=== PATIENT | female | born 1980 | race American Indian/Alaskan Native ===

== ENCOUNTER 2017-10-17 10:07 | Emergency (ER) | payer SELFPAY ==
[2017-10-17 11:22] LABS: Hematocrit 30.4 % (30.3-42.9); Hemoglobin 9.6 gm/dl (10.1-14.3); Mean Corpuscular HGB Conc 32 % (30-34); Mean Corpuscular Volume 75 fl (79-97); Platelet Count 200 K/mm3 (140-440); Red Blood Count 4.03 M/mm3 (3.65-5.03); Red Cell Distribution Width 17.5 % (13.2-15.2)
[2017-10-17 11:25] LABS: BUN/Creatinine Ratio 18; Blood Urea Nitrogen 11 mg/dL (7-17); Calcium 8.7 mg/dL (8.4-10.2); Hemolysis Index 19
[2017-10-17 11:27] LABS: Mean Corpuscular Hemoglobin 24 pg (28-32)
[2017-10-17 11:43] VITALS: BP 140/84
[2017-10-17] MEDS ORDERED: TYLENOL PO ONE (11:51)
--- NOTE | 2017-10-17 11:51 | Emergency Department Report ---
ED General Adult HPI - General Chief complaint: Syncope Stated complaint: PSEUDO SYNCOPY Time Seen by Provider: 10/17/17 11:38 Source: patient, EMS (ems notes not available at time of chart dictation), RN notes reviewed Mode of arrival: Stretcher Limitations: No Limitations - History of Present Illness Initial comments: This is a 36-year-old female who was not known to this provider previously who reports that she is not . Her primary care doctor is with the [facility]. Patient was at work today, and got hit in the head with a cart at work. After this impact, she thinks that she passed out. She is not certain. She complains of throbbing global headache. Prior to the accident at work, she was not having any symptoms. The headache is not sudden or thunderclap in nature and it did not reach maximal intensity within an hour. She denies midline neck pain, chest pain, abdominal pain, shortness of breath. -: Sudden Location: head Radiation: non-radiation Quality: aching Consistency: other (episode of syncope is now resolved) Improves with: none Worsens with: none Associated Symptoms: confusion, headaches, loss of appetite, malaise, syncope. denies: chest pain, cough, diaphoresis, fever/chills, nausea/vomiting, rash, seizure, shortness of breath, weakness - Related Data Allergies Allergy/AdvReac Type Severity Reaction Status Date / Time No Known Allergies Allergy Unverified 10/17/17 10:32 ED Review of Systems ROS: Stated complaint: PSEUDO SYNCOPY Other details as noted in HPI Constitutional: denies: fever Eyes: denies: eye discharge ENT: denies: epistaxis Respiratory: denies: cough Cardiovascular: syncope Gastrointestinal: denies: abdominal pain Genitourinary: denies: dysuria Musculoskeletal: denies: back pain Skin: denies: rash Neurological: headache. denies: weakness Psychiatric: anxiety ED Past Medical Hx - Past Medical History Previous Medical History?: No - Surgical History Past Surgical History?: No - Social History Smoking Status: Never Smoker Substance Use Type: None ED Physical Exam - General Limitations: No Limitations General appearance: alert, in no apparent distress - Head Head exam: Present: atraumatic, normocephalic - Eye Eye exam: Present: normal appearance, PERRL, EOMI. Absent: nystagmus - ENT ENT exam: Present: normal exam, normal orophraynx, mucous membranes moist, normal external ear exam - Neck Neck exam: Present: normal inspection, full ROM. Absent: tenderness, meningismus - Respiratory Respiratory exam: Present: normal lung sounds bilaterally. Absent: respiratory distress - Cardiovascular Cardiovascular Exam: Present: regular rate, normal rhythm, normal heart sounds. Absent: bradycardia, tachycardia, irregular rhythm, systolic murmur, diastolic murmur, rubs, gallop - GI/Abdominal GI/Abdominal exam: Present: soft, normal bowel sounds. Absent: distended, tenderness, guarding, rebound, rigid, pulsatile mass - Extremities Exam Extremities exam: Present: normal inspection, full ROM, normal capillary refill , other (2+ pulses noted in the bilateral upper, lower extremities. Compartments soft. No long bony tenderness. The pelvis is stable.). Absent: tenderness, pedal edema, joint swelling, calf tenderness - Back Exam Back exam: Present: normal inspection, full ROM. Absent: tenderness, CVA tenderness (R), paraspinal tenderness, vertebral tenderness - Neurological Exam Neurological exam: Present: alert (able to recall 3 out of 3 words at time 0. Able to recall 2 out of 3 words at 5 minutes.), oriented X3, CN II-XII intact, normal gait (there is no past-pointing. There is normal [id number]. There is negative pronator drift.), other (Extraocular movements intact. Tongue midline. No facial droop. Facial sensation intact to light touch in the V1, V2 , V3 distribution bilaterally. 5 and 5 strength in 4 extremities.. Sensation is intact to light touch in 4 extremities.). Absent: motor sensory deficit - Psychiatric Psychiatric exam: Present: normal affect, normal mood - Skin Skin exam: Present: warm, dry, intact, normal color. Absent: rash ED Course Vital Signs 10/17/17 10/17/17 10:28 11:42 Temperature 98.1 F Pulse Rate 81 72 Respiratory 16 16 Rate Blood Pressure 143/89 Blood Pressure 140/84 [Left] O2 Sat by Pulse 100 96 Oximetry - Reevaluation(s) Reevaluation #1: 10/17/17 13:03 Differential diagnosis, including but not limited to: Intracranial injury, arrhythmia, concussion Assessment and plan: 36-year-old female status post episode of loss of consciousness after mild blunt head trauma. Clinically sober at this time, has a GCS of 15, with an NIH score of 0. Most likely has a concussion. EKG unremarkable. Denies DVT, pulmonary embolus risk factors, and is low risk by well's criteria. Has been observed in the ER for hours thus far without clinical decompensation or recurrent episode of syncope. Call the [place] physician, Dr. Simpson; [place] will contact the patient with follow-up within the week. Currently awaiting CT scan of the brain results. Reevaluation #2: 10/17/17 13:45 CT scan of the brain is negative. Patient observed in the ER for hours without clinical decompensation. Noted to be looking at a phone without difficulty. No recurrent events. [place] is going to contact the patient to arrange outpatient follow-up. Patient will be discharged at this time. ED Medical Decision Making - Lab Data Result diagrams: 10/17/17 10:49 10/17/17 10:49 Vital Signs 10/17/17 10/17/17 10:28 11:42 Temperature 98.1 F Pulse Rate 81 72 Respiratory 16 16 Rate Blood Pressure 143/89 Blood Pressure 140/84 [Left] O2 Sat by Pulse 100 96 Oximetry Lab Results 10/17/17 10/17/17 Range/Units 10:49 10:49 WBC 6.2 (4.5-11.0) K/mm3 RBC 4.03 (3.65-5.03) M/mm3 Hgb 9.6 L (10.1-14.3) gm/dl Hct 30.4 (30.3-42.9) % MCV 75 L (79-97) fl MCH 24 L (28-32) pg MCHC 32 (30-34) % RDW 17.5 H (13.2-15.2) % Plt Count 200 (140-440) K/mm3 Sodium 136 L (137-145) mmol/L Potassium 3.5 L (3.6-5.0) mmol/L Chloride 103.3 (98-107) mmol/L Carbon Dioxide 19 L (22-30) mmol/L Anion Gap 17 mmol/L BUN 11 (7-17) mg/dL Creatinine 0.6 L (0.7-1.2) mg/dL Estimated GFR > 60 ml/min BUN/Creatinine Ratio 18 % Glucose 91 (65-100) mg/dL Calcium 8.7 (8.4-10.2) mg/dL - EKG Data -: EKG Interpreted by Me EKG shows normal: sinus rhythm, axis, intervals, QRS complexes, ST-T waves - EKG Data When compared to previous EKG there are: previous EKG unavailable - Radiology Data Radiology results: pending Critical care attestation.: If time is entered above; I have spent that time in minutes in the direct care of this critically ill patient, excluding procedure time. ED Disposition Clinical Impression: Concussion Qualifiers: Encounter type: initial encounter Loss of consciousness presence/duration: with LOC of unspecified duration Qualified Code(s): S06.0X9A - Concussion with loss of consciousness of unspecified duration, initial encounter Disposition: TO HOME OR SELFCARE Is pt being admited?: No Does the pt Need Aspirin: No Condition: Good Instructions: Minor Head Injury (ED), Concussion (ED) Additional Instructions: Take acetaminophen, [id number], 650 mg, every 4 hours, alternating with ibuprofen, 600 mg with food, every [address] or operate motor vehicles until cleared by her primary care doctor or neurology specialist. Patient most likely has a concussion. Patient can return to work, but patient should not participate in strenuous physical activities or contact sports or contact activities such as football or heavy weight lifting until cleared by a physician. Follow-up with the primary care doctor or neurology specialist for presumed concussion within the next 7 days. Return to the ER right away with new pain, worsening pain, migration of pain, projectile vomiting, change in mental status, confusion, inability to tolerate liquid feeds. Referrals: SHAILESH REECE MD [Referring] - 3-5 Days KARIN HERNANDEZ MD [Staff Physician] - 3-5 Days KEVIN SCHAFER MD [Staff Physician] - 3-5 Days
--- NOTE | 2017-10-17 13:29 | Cat Scan Report ---
FINAL REPORT EXAM: CT HEAD/BRAIN WO CON HISTORY: headache concussion COMPARISON: None. TECHNIQUE: Multiple contiguous axial images were obtained from the skullbase to the vertex without administration of IV contrast. FINDINGS: Brain volume is normal for age. No hemorrhage, mass, mass effect, or midline shift. Ventricles are not enlarged. Normal basal cisterns. No pathologic extra-axial fluid collection. No evidence of acute infarct. No skull fracture. Paranasal sinuses and mastoid air cells are clear. Bilateral orbits are grossly intact. IMPRESSION: No acute intracranial abnormality.
== END 2017-10-17 13:57 | disposition home or self-care (01) ==
LOC: ED 10:07
DX: S06.0X9A Concussion with loss of consciousness of unspecified duration, initial encounter (principal); X58.XXXA Exposure to other specified factors, initial encounter; Y93.89 Activity, other specified; Y92.89 Other specified places as the place of occurrence of the external cause; Y99.8 Other external cause status
CPT/HCPCS: 36415; 70450; 80048; 85027; 93005; 93010; 99284

== ENCOUNTER 2018-08-26 18:46 | Outpatient (CLI) | payer OTHER ==
[2018-08-26] MEDS ORDERED: LACTATED RINGERS 500 ML IV ONE (20:00)
[2018-08-26 20:54] LABS: Bacteria,Urine 2+ /HPF (Negative); Bilirubin,Urine NEG (Negative); Blood,Urine NEG (Negative); Color,Urine Straw (Yellow); Mucus,Urine FEW /HPF; Protein,Urine <15 mg/dL mg/dL (Negative); Urobilinogen,Urine < 2.0 mg/dL (<2.0)
[2018-08-26 21:52] VITALS: BP 117/63
== END 2018-08-26 22:24 | disposition home or self-care (01) ==
LOC: TRG 18:46
PROVIDERS: ATTEND Obstetrics & Gynecology
DX: O47.02 False labor before 37 completed weeks of gestation, second trimester (principal); Z3A.27 27 weeks gestation of pregnancy
CPT/HCPCS: 59025; 81001; 87086

== ENCOUNTER 2018-10-11 17:50 | Outpatient (CLI) | payer OTHER ==
[2018-10-11 19:16] LABS: Bilirubin,Urine NEG (Negative); Blood,Urine SM (Negative); Color,Urine Yellow (Yellow); Mucus,Urine FEW /HPF; Protein,Urine <15 mg/dL mg/dL (Negative); Urobilinogen,Urine < 2.0 mg/dL (<2.0)
[2018-10-11 19:27] LABS: Hematocrit 32.9 % (30.3-42.9); Hemoglobin 10.8 gm/dl (10.1-14.3); Mean Corpuscular HGB Conc 33 % (30-34); Mean Corpuscular Volume 85 fl (79-97); Platelet Count 184 K/mm3 (140-440); Red Blood Count 3.88 M/mm3 (3.65-5.03); Red Cell Distribution Width 15.5 % (13.2-15.2)
[2018-10-11] MEDS: LACTATED RINGERS 1,000 ML IV SCH ×2 (19:31→20:45)
[2018-10-11 19:45] LABS: Uric Acid 4.7 mg/dL (3.5-7.6)
[2018-10-11 19:46] LABS: Alanine Aminotransferase < 5 units/L (7-56)
[2018-10-11] MEDS ORDERED: ceFAZolin 2 GM in NACL 0.9% 100 ML IV ONE (20:40)
[2018-10-11 21:58] VITALS: BP 144/74
== END 2018-10-11 22:05 | disposition home or self-care (01) ==
LOC: TRG 17:50
PROVIDERS: ATTEND Obstetrics & Gynecology
DX: O26.893 Other specified pregnancy related conditions, third trimester (principal); O21.2 Late vomiting of pregnancy; R51 Headache; R25.2 Cramp and spasm; O13.3 Gestational [pregnancy-induced] hypertension without significant proteinuria, third trimester; O24.419 Gestational diabetes mellitus in pregnancy, unspecified control; O09.523 Supervision of elderly multigravida, third trimester; Z3A.34 34 weeks gestation of pregnancy
CPT/HCPCS: 36415; 59025; 81001; 82565; 83615; 84450; 84460; 84550; 85027; 87086; 96361; 96365; J0690; J7120; 96360

== ENCOUNTER 2018-10-12 17:16 | Outpatient (CLI) | payer OTHER ==
[2018-10-12] MEDS ORDERED: LACTATED RINGERS 1,000 ML ONE (18:25)
[2018-10-12] MEDS ORDERED: ZOFRAN IV ONE (18:36)
[2018-10-12 19:57] LABS: Bacteria,Urine 4+ /HPF (Negative); Bilirubin,Urine NEG (Negative); Blood,Urine SM (Negative); Color,Urine Amber (Yellow); Mucus,Urine 1+ /HPF; Urobilinogen,Urine < 2.0 mg/dL (<2.0)
[2018-10-12 19:59] LABS: RBC,Urine > 182.0 /HPF (0.0-6.0)
[2018-10-12] MEDS ORDERED: LACTATED RINGERS 1,000 ML IV ONE (20:11)
[2018-10-12] MEDS ORDERED: REGLAN IV ONE (20:35)
[2018-10-12 21:05] VITALS: BP 134/83
[2018-10-12] MEDS ORDERED: ANCEF/NS 1 GM/50 ML 1 GM/50 ML BAG IV ONE (21:25)
== END 2018-10-12 22:03 | disposition home or self-care (01) ==
LOC: TRG 17:16
PROVIDERS: ATTEND Obstetrics & Gynecology
DX: O26.893 Other specified pregnancy related conditions, third trimester (principal); R10.9 Unspecified abdominal pain; O21.2 Late vomiting of pregnancy; O13.3 Gestational [pregnancy-induced] hypertension without significant proteinuria, third trimester; O24.419 Gestational diabetes mellitus in pregnancy, unspecified control; O09.523 Supervision of elderly multigravida, third trimester; Z3A.34 34 weeks gestation of pregnancy
CPT/HCPCS: 59025; 81001; 87086; 96365; 96366; 96368; 96375; J0690; J2405; J2765; J7120; 96360; 96361

== ENCOUNTER 2018-10-30 11:36 | Observation (INO) | payer OTHER ==
[2018-10-30] MEDS ORDERED: COLACE PO PRN (12:37)
[2018-10-30] MEDS ORDERED: TYLENOL PO PRN (12:37)
[2018-10-30] MEDS ORDERED: ZOFRAN IV PRN (12:37)
[2018-10-30] MEDS ORDERED: MILK OF MAGNESIA PO PRN (12:37)
[2018-10-30] MEDS ORDERED: LACTATED RINGERS 500 ML IV ONE (12:38)
--- NOTE | 2018-10-30 12:44 | History and Physical Report ---
History of Present Illness Date of examination: 10/30/18 Chief complaint: Suspected PIH History of present illness: Pt is a 37yo BF EDC 11/22/18; EGA 36 5/7 weeks presents from [facility] for ashby spected PIH. She was seen at [facility] today with BP142/86 and complaints of leg swelling, and denies headaches or blurred vision. BPP 10/10 with PATRICA 11.1 She is being admitted for 23 hour Observation per [facility]. Past History Past Medical History: no pertinent history Social history: no significant social history, single - Obstetrical History Expected Date of Delivery: 11/22/18 Actual Gestation: 36 Week(s) 5 Day(s) : 3 Medications and Allergies Allergies Allergy/AdvReac Type Severity Reaction Status Date / Time No Known Allergies Allergy Verified 10/11/18 18:16 Home Medications Medication Instructions Recorded Confirmed Last Taken Type Ampicillin 500 mg PO Q6H #20 capsule 08/26/18 Unknown Rx cephALEXin [Keflex] 500 mg PO Q12HR #14 cap 10/11/18 Unknown Rx Active Meds: Active Medications Acetaminophen (Tylenol) 650 mg PO Q4H PRN PRN Reason: Pain MILD(1-3)/Fever >100.5/GONZALEZ Docusate Sodium (Colace) 100 mg PO Q12H PRN PRN Reason: Constipation Lactated Ringer's (Lactated Ringers) 500 mls @ 999 mls/hr IV BOLUS ONE Stop: 10/30/18 13:08 Lactated Ringer's (Lactated Ringers) 1,000 mls @ 125 mls/hr IV DIRECT VALERIE Labetalol HCl (Normodyne) 200 mg PO BID VALERIE Labetalol HCl (Normodyne) 200 mg PO BID VALERIE Magnesium Hydroxide (Milk Of Magnesia) 30 ml PO QHS PRN PRN Reason: Laxative Effect Multivitamins/Iron/Calcium ( Vitamin) 1 each PO QDAY VALERIE Ondansetron HCl (Zofran) 4 mg IV Q6H PRN PRN Reason: Nausea And Vomiting Review of Systems All systems: negative - Vital Signs Vital signs: Vital Signs Temp Resp 97.8 F 10/30/18 12:01 10/30/18 12:01 Temp Pulse Resp BP Pulse Ox 97.8 F 10/30/18 12:01 10/30/18 12:01 - Physical Exam Breasts: Positive: deferred Cardiovascular: Regular rate Lungs: Positive: Clear to auscultation Abdomen: Positive: normal appearance Genitourinary (Female): Positive: normal external genitalia Uterus: Positive: enlarged Extremities: Positive: normal - Obstetrical FHR: category 1 Uterine Contraction Monitor Mode: External Results Result Diagrams: 10/30/18 Unknown 10/30/18 Unknown All other labs normal. Ultrasound: report reviewed (BPP 10/; PATRICA 11.1) Assessment and Plan - Patient Problems (1) 36 weeks gestation of Onset Date: 10/30/18 Current Visit: Yes Status: Acute Plan to address problem: A: IUP @ 36 5/7 weeks PIH P: Admit for 23hr Observation Obtain PIH labs including 24hr urine for protein Begin Labetolol 200mg BID and IV hydralazine prn (2) PIH ( induced hypertension), antepartum Onset Date: 10/30/18 Current Visit: Yes Status: Acute
[2018-10-30] MEDS ORDERED: NORMODYNE PO SCH (13:00)
[2018-10-30 13:15] LABS: Hematocrit 36.1 % (30.3-42.9); Hemoglobin 11.2 gm/dl (10.1-14.3); Mean Corpuscular HGB Conc 31 % (30-34); Mean Corpuscular Volume 85 fl (79-97); Platelet Count 178 K/mm3 (140-440); Red Blood Count 4.26 M/mm3 (3.65-5.03); Red Cell Distribution Width 15.3 % (13.2-15.2)
[2018-10-30] MEDS: NORMODYNE PO SCH ×2 (13:20→23:11)
[2018-10-30 13:25] LABS: Alanine Aminotransferase 12 units/L (7-56); Alanine Aminotransferase 16 units/L (7-56); BUN/Creatinine Ratio 13; Blood Urea Nitrogen 8 mg/dL (7-17); Calcium 8.9 mg/dL (8.4-10.2); Hemolysis Index 9; Uric Acid 4.7 mg/dL (3.5-7.6)
[2018-10-30 14:27] LABS: Bilirubin,Urine NEG (Negative); Blood,Urine NEG (Negative); Color,Urine Yellow (Yellow); Mucus,Urine FEW /HPF; Protein,Urine <15 mg/dL mg/dL (Negative); Urobilinogen,Urine < 2.0 mg/dL (<2.0)
[2018-10-30 14:33] LABS: Albumin 3.5 g/dL (3.9-5)
[2018-10-30] MEDS ORDERED: LACTATED RINGERS 1,000 ML ONE (23:02)
[2018-10-30] MEDS: LACTATED RINGERS 1,000 ML IV SCH (23:11)
[2018-10-31] MEDS ORDERED: LACTATED RINGERS 1,000 ML ONE (03:20)
[2018-10-31] MEDS: LACTATED RINGERS 1,000 ML IV SCH ×2 (03:22→12:55)
[2018-10-31] MEDS ORDERED: PRENATAL VITAMIN PO SCH (10:00)
--- NOTE | 2018-10-31 10:29 | Progress Note ---
Assessment and Plan - Patient Problems (1) 36 weeks gestation of Onset Date: 10/30/18 Current Visit: Yes Status: Acute Plan to address problem: A: IUP @ 36 6/7 weeks PIH P: Admit for 23hr Observation Awaiting 24hr urine for protein Continue Labetolol 200mg BID and IV hydralazine prn (2) PIH ( induced hypertension), antepartum Onset Date: 10/30/18 Current Visit: Yes Status: Acute Subjective - Subjective Date of service: 10/31/18 Principal diagnosis: IUP @ 36 6/7 weeks; PIH Interval history: Pt is a 37yo BF EDC 11/22/18; EGA 36 6/7 weeks presented from [facility] for suspected PIH. She was seen at [facility] with BP142/86 and complained of leg swelling, but complained of headaches this morning but no blurred vision. BPP 10 with PATRICA 11.1 She was admitted for 23 hour Observation per [facility]. Patient reports: movement normal, no new complaints, no loss of fluid, no vaginal bleeding, no contractions Objective - Vital Signs Vital Signs: Vital Signs - 12hr 10/30/18 10/30/18 10/30/18 22:27 22:30 22:35 Temperature Pulse Rate 96 H 90 94 H Respiratory Rate Blood Pressure O2 Sat by Pulse 94 95 96 Oximetry 10/30/18 10/30/18 10/30/18 22:40 22:41 22:45 Temperature Pulse Rate 90 91 H 92 H Respiratory Rate Blood Pressure 132/75 O2 Sat by Pulse 95 94 95 Oximetry 10/30/18 10/30/18 10/30/18 22:46 23:04 23:09 Temperature Pulse Rate 82 109 H 102 H Respiratory Rate Blood Pressure O2 Sat by Pulse 94 98 97 Oximetry 10/30/18 10/30/18 10/30/18 23:11 23:14 23:19 Temperature Pulse Rate 101 H 90 92 H Respiratory Rate Blood Pressure 124/74 O2 Sat by Pulse 96 99 Oximetry 10/30/18 10/30/18 10/30/18 23:24 23:26 23:29 Temperature Pulse Rate 99 H 86 87 Respiratory Rate Blood Pressure 124/81 O2 Sat by Pulse 99 98 Oximetry 10/30/18 10/30/18 10/30/18 23:34 23:35 23:39 Temperature Pulse Rate 91 H 71 91 H Respiratory Rate Blood Pressure O2 Sat by Pulse 99 82 L 99 Oximetry 10/30/18 10/30/18 10/30/18 23:41 23:44 23:49 Temperature Pulse Rate 86 84 89 Respiratory Rate Blood Pressure 127/72 O2 Sat by Pulse 96 97 Oximetry 10/30/18 10/30/18 10/30/18 23:54 23:55 23:59 Temperature Pulse Rate 93 H 101 H 95 H Respiratory Rate Blood Pressure 133/75 O2 Sat by Pulse 96 96 Oximetry 10/31/18 10/31/18 10/31/18 00:01 00:04 00:08 Temperature Pulse Rate 93 H 103 H 90 Respiratory Rate Blood Pressure O2 Sat by Pulse 92 96 94 Oximetry 10/31/18 10/31/18 10/31/18 00:09 00:10 00:14 Temperature Pulse Rate 105 H 108 H 93 H Respiratory Rate Blood Pressure 144/84 O2 Sat by Pulse 96 96 Oximetry 10/31/18 10/31/18 10/31/18 00:19 00:24 00:26 Temperature Pulse Rate 99 H 89 101 H Respiratory Rate Blood Pressure 123/74 O2 Sat by Pulse 96 97 Oximetry 10/31/18 10/31/18 10/31/18 00:37 00:40 00:41 Temperature 97.1 F L Pulse Rate 91 H 85 Respiratory 18 Rate Blood Pressure 129/72 O2 Sat by Pulse 98 Oximetry 10/31/18 10/31/18 10/31/18 00:42 00:47 00:52 Temperature Pulse Rate 95 H 88 91 H Respiratory Rate Blood Pressure O2 Sat by Pulse 97 97 96 Oximetry 10/31/18 10/31/18 10/31/18 00:57 01:02 01:07 Temperature Pulse Rate 82 84 79 Respiratory Rate Blood Pressure 125/75 O2 Sat by Pulse 98 96 95 Oximetry 10/31/18 10/31/18 10/31/18 01:11 01:12 01:17 Temperature Pulse Rate 77 85 84 Respiratory Rate Blood Pressure 138/72 O2 Sat by Pulse 95 97 Oximetry 10/31/18 10/31/18 10/31/18 01:22 01:26 01:27 Temperature Pulse Rate 83 78 85 Respiratory Rate Blood Pressure 134/72 O2 Sat by Pulse 96 96 Oximetry 10/31/18 10/31/18 10/31/18 01:32 01:37 01:40 Temperature Pulse Rate 84 83 80 Respiratory Rate Blood Pressure 131/72 O2 Sat by Pulse 96 96 Oximetry 10/31/18 10/31/18 10/31/18 01:42 01:47 01:52 Temperature Pulse Rate 84 82 82 Respiratory Rate Blood Pressure O2 Sat by Pulse 96 96 96 Oximetry 10/31/18 10/31/18 10/31/18 01:56 01:57 01:59 Temperature Pulse Rate 92 H 81 94 H Respiratory Rate Blood Pressure 134/71 O2 Sat by Pulse 96 93 Oximetry 10/31/18 10/31/18 10/31/18 02:02 02:04 02:07 Temperature Pulse Rate 91 H 96 H 96 H Respiratory Rate Blood Pressure O2 Sat by Pulse 95 94 96 Oximetry 10/31/18 10/31/18 10/31/18 02:10 02:12 02:17 Temperature Pulse Rate 98 H 94 H 82 Respiratory Rate Blood Pressure 136/81 O2 Sat by Pulse 94 96 96 Oximetry 10/31/18 10/31/18 10/31/18 02:22 02:26 02:27 Temperature Pulse Rate 86 88 88 Respiratory Rate Blood Pressure 123/77 O2 Sat by Pulse 98 97 Oximetry 10/31/18 10/31/18 10/31/18 02:32 02:37 02:40 Temperature Pulse Rate 81 82 82 Respiratory Rate Blood Pressure 128/76 O2 Sat by Pulse 97 97 Oximetry 10/31/18 10/31/18 10/31/18 02:42 02:47 02:52 Temperature Pulse Rate 86 85 86 Respiratory Rate Blood Pressure O2 Sat by Pulse 96 96 96 Oximetry 10/31/18 10/31/18 10/31/18 03:14 03:19 03:24 Temperature Pulse Rate 97 H 92 H 85 Respiratory Rate Blood Pressure O2 Sat by Pulse 98 98 99 Oximetry 10/31/18 10/31/18 10/31/18 03:41 03:47 03:52 Temperature Pulse Rate 80 89 87 Respiratory Rate Blood Pressure 131/69 O2 Sat by Pulse 98 97 Oximetry 10/31/18 10/31/18 10/31/18 03:55 03:57 04:02 Temperature Pulse Rate 87 82 85 Respiratory Rate Blood Pressure 125/67 O2 Sat by Pulse 94 96 95 Oximetry 09/25/19 09/25/19 09/25/19 04:07 04:12 04:16 Temperature Pulse Rate 91 H 80 97 H Respiratory Rate Blood Pressure 164/91 O2 Sat by Pulse 97 98 92 Oximetry 10/31/18 10/31/18 10/31/18 04:18 04:23 04:26 Temperature Pulse Rate 95 H 85 86 Respiratory Rate Blood Pressure 130/68 O2 Sat by Pulse 100 97 Oximetry 10/31/18 10/31/18 10/31/18 04:28 04:33 04:38 Temperature Pulse Rate 82 79 80 Respiratory Rate Blood Pressure O2 Sat by Pulse 97 97 95 Oximetry 10/31/18 10/31/18 10/31/18 04:39 04:41 04:43 Temperature Pulse Rate 80 82 86 Respiratory Rate Blood Pressure 129/68 O2 Sat by Pulse 94 95 Oximetry 10/31/18 10/31/18 10/31/18 04:47 04:48 05:04 Temperature Pulse Rate 85 83 89 Respiratory Rate Blood Pressure O2 Sat by Pulse 94 95 99 Oximetry 10/31/18 10/31/18 10/31/18 05:09 05:11 05:14 Temperature Pulse Rate 78 83 78 Respiratory Rate Blood Pressure 133/79 O2 Sat by Pulse 99 98 Oximetry 10/31/18 10/31/18 10/31/18 05:19 05:24 05:26 Temperature Pulse Rate 80 75 75 Respiratory Rate Blood Pressure 113/60 O2 Sat by Pulse 97 98 Oximetry 10/31/18 10/31/18 10/31/18 05:29 05:34 05:39 Temperature Pulse Rate 83 81 86 Respiratory Rate Blood Pressure O2 Sat by Pulse 98 98 98 Oximetry 10/31/18 10/31/18 10/31/18 05:41 05:42 05:44 Temperature Pulse Rate 85 50 L 81 Respiratory Rate Blood Pressure 113/72 O2 Sat by Pulse 73 L 98 Oximetry 10/31/18 10/31/18 10/31/18 05:49 05:54 05:56 Temperature Pulse Rate 84 82 73 Respiratory Rate Blood Pressure 143/78 O2 Sat by Pulse 99 98 Oximetry 10/31/18 10/31/18 10/31/18 05:59 06:04 06:09 Temperature Pulse Rate 76 81 83 Respiratory Rate Blood Pressure O2 Sat by Pulse 96 96 97 Oximetry 10/31/18 10/31/18 10/31/18 06:11 06:14 06:19 Temperature Pulse Rate 75 74 89 Respiratory Rate Blood Pressure 132/73 O2 Sat by Pulse 97 98 Oximetry 10/31/18 10/31/18 10/31/18 06:24 06:26 06:29 Temperature Pulse Rate 82 88 78 Respiratory Rate Blood Pressure 139/83 O2 Sat by Pulse 97 97 Oximetry 10/31/18 10/31/18 10/31/18 06:34 06:39 06:41 Temperature Pulse Rate 89 60 88 Respiratory Rate Blood Pressure 143/86 O2 Sat by Pulse 98 98 Oximetry 10/31/18 10/31/18 10/31/18 06:44 07:03 07:08 Temperature Pulse Rate 85 82 79 Respiratory Rate Blood Pressure O2 Sat by Pulse 99 100 98 Oximetry 10/31/18 10/31/18 10/31/18 07:11 07:13 07:18 Temperature Pulse Rate 81 77 72 Respiratory Rate Blood Pressure 129/76 O2 Sat by Pulse 98 98 Oximetry 10/31/18 10/31/18 10/31/18 07:23 07:26 07:28 Temperature Pulse Rate 73 80 73 Respiratory Rate Blood Pressure 132/76 O2 Sat by Pulse 99 100 Oximetry 10/31/18 10/31/18 10/31/18 07:33 07:38 07:40 Temperature Pulse Rate 78 89 93 H Respiratory Rate Blood Pressure O2 Sat by Pulse 99 100 0 L Oximetry 10/31/18 10/31/18 10/31/18 07:41 07:43 07:48 Temperature Pulse Rate 88 71 85 Respiratory Rate Blood Pressure 126/83 O2 Sat by Pulse 99 100 Oximetry 10/31/18 10/31/18 10/31/18 07:53 07:54 07:57 Temperature Pulse Rate 88 86 80 Respiratory Rate Blood Pressure 127/60 O2 Sat by Pulse 100 80 L Oximetry 10/31/18 10/31/18 10/31/18 07:58 08:03 08:08 Temperature Pulse Rate 76 82 80 Respiratory Rate Blood Pressure O2 Sat by Pulse 97 99 100 Oximetry 10/31/18 10/31/18 10/31/18 08:13 08:18 08:23 Temperature Pulse Rate 104 H 80 92 H Respiratory Rate Blood Pressure O2 Sat by Pulse 100 100 100 Oximetry 10/31/18 10/31/18 10/31/18 08:26 08:28 08:33 Temperature Pulse Rate 69 79 68 Respiratory Rate Blood Pressure O2 Sat by Pulse 89 93 91 Oximetry 10/31/18 10/31/18 10/31/18 08:38 08:43 08:48 Temperature Pulse Rate 91 H 48 L 50 L Respiratory Rate Blood Pressure O2 Sat by Pulse 100 93 94 Oximetry 10/31/18 10/31/18 10/31/18 08:53 08:54 08:58 Temperature Pulse Rate 54 L 78 81 Respiratory Rate Blood Pressure 148/93 O2 Sat by Pulse 93 93 Oximetry 10/31/18 10/31/18 10/31/18 09:03 09:08 09:13 Temperature Pulse Rate 77 64 75 Respiratory Rate Blood Pressure O2 Sat by Pulse 93 91 92 Oximetry 10/31/18 10/31/18 10/31/18 09:18 09:23 09:28 Temperature Pulse Rate 81 78 79 Respiratory Rate Blood Pressure O2 Sat by Pulse 92 93 92 Oximetry 10/31/18 09:33 Temperature Pulse Rate 81 Respiratory Rate Blood Pressure O2 Sat by Pulse 92 Oximetry - Exam Abdomen: Present: normal appearance, soft Uterus: Present: normal FHR: category 1 Uterine Contraction Monitor Mode: External Uterine Contraction Pattern: Absent - Labs Labs: Abnormal Labs 10/30/18 10/30/18 10/30/18 Unknown Unknown Unknown MCH 26 L RDW 15.3 H Sodium 136 L Carbon Dioxide 20 L Creatinine 0.6 L 0.6 L Lactate Dehydrogenase 266 H Albumin 3.5 L Laboratory Results - last 24 hr 10/30/18 10/30/18 10/30/18 14:00 Unknown Unknown WBC 6.9 RBC 4.26 Hgb 11.2 Hct 36.1 MCV 85 MCH 26 L MCHC 31 RDW 15.3 H Plt Count 178 Sodium Potassium Chloride Carbon Dioxide Anion Gap BUN Creatinine 0.6 L Estimated GFR > 60 BUN/Creatinine Ratio Glucose Uric Acid 4.7 Calcium Total Bilirubin AST 20 ALT 12 Alkaline Phosphatase Lactate Dehydrogenase 266 H Total Protein Albumin Albumin/Globulin Ratio Urine Color Yellow Urine Turbidity Clear Urine pH 6.0 Ur Specific Etters 1.014 Urine Protein <15 mg/dl Urine Glucose (UA) Neg Urine Ketones Tr Urine Blood Neg Urine Nitrite Neg Urine Bilirubin Neg Urine Urobilinogen < 2.0 Ur Leukocyte Esterase Lg Urine WBC (Auto) 6.0 Urine RBC (Auto) 12.0 U Epithel Cells (Auto) 1.0 Urine Mucus Few 09/24/19 Unknown WBC RBC Hgb Hct MCV MCH MCHC RDW Plt Count Sodium 136 L Potassium 4.2 Chloride 103.0 Carbon Dioxide 20 L Anion Gap 17 BUN 8 Creatinine 0.6 L Estimated GFR > 60 BUN/Creatinine Ratio 13 Glucose 90 Uric Acid Calcium 8.9 Total Bilirubin 0.20 AST 20 ALT 16 Alkaline Phosphatase 120 Lactate Dehydrogenase Total Protein 6.8 Albumin 3.5 L Albumin/Globulin Ratio 1.1 Urine Color Urine Turbidity Urine pH Ur Specific Etters Urine Protein Urine Glucose (UA) Urine Ketones Urine Blood Urine Nitrite Urine Bilirubin Urine Urobilinogen Ur Leukocyte Esterase Urine WBC (Auto) Urine RBC (Auto) U Epithel Cells (Auto) Urine Mucus
[2018-10-31] MEDS: NORMODYNE PO SCH (10:46)
[2018-10-31 18:55] VITALS: BP 139/65
[2018-10-31 19:08] LABS: Creatinine 24 Hour,Urine 2.1 (0.8-2.8)
--- NOTE | 2018-10-31 19:43 | Discharge Summary ---
Providers - Providers Date of Admission: 10/30/18 12:37 Date of discharge: 10/31/18 Attending physician: DAI POE Primary care physician: DAI POE Hospitalization Reason for admission: observation, IUP at term (IUP @ 36 5/7 weeks; Suspected PIH) Episiotomy: none Laceration: none Other procedures: none complications: none Discharge diagnosis: other (IUP @ 36 6/7 weeks; Mild PIH) Hospital course: Pt is a 37yo BF EDC 11/22/18; EGA 36 6/7 weeks presented from [facility] for suspected PIH. She was seen at [facility] with BP 142/86 and complained of leg swelling, and denied headaches or blurred vision. BPP 10/10 with PATRICA 11.1 She was admitted for 23 hour Observation per [facility], and BP's remained stable 123-164/60-91 on Labetolol 200mg BID. She did not require any IV Hydralazine. PIH labs were WNL and 24hr urine total protein was 625mg. She will therefore be discharged to home with follow up in office in 2 days, and with [facility] in 5 days. Condition at discharge: Good Disposition: DC-01 TO HOME OR SELFCARE - Discharge Diagnoses (1) 36 weeks gestation of Status: Acute (2) PIH ( induced hypertension), antepartum Status: Resolved Plan - Discharge Medications Prescriptions: Labetalol [Labetalol 200mg TAB] 200 mg PO BID #60 tablet - Provider Discharge Summary Activity: routine, no sex for 6 weeks, no heavy lifting 4 weeks, no strenuous exercise Diet: other (Low sodium diet) Instructions: routine Additional instructions: [] Smoking cessation referral if applicable(refer to patient education folder for contact #) [] Refer to [facility] Booklet Call your doctor immediately for: * Fever > 100.5 * Heavy vaginal bleeding ( >1 pad per hour) * Severe persistent headache * Shortness of breath * Reddened, hot, painful area to leg or breast * Drainage or odor from incision. * Keep incision clean and dry at all times and follow doctor's instructions regarding bathing/showering - Follow up plan Follow up: DAI POE MD [Primary Care Provider] - 48 Hours MARSHA COLON MD [Staff Physician] - 3 Days Forms: [facility] Discharge Summary
== END 2018-10-31 20:16 | disposition home or self-care (01) ==
LOC: TRG 11:36 → LD 12:37 → TRG 15:21
PROVIDERS: ADMIT Obstetrics & Gynecology; ATTEND Obstetrics & Gynecology
DX: O13.3 Gestational [pregnancy-induced] hypertension without significant proteinuria, third trimester (principal); Z3A.36 36 weeks gestation of pregnancy
CPT/HCPCS: 36415; 80053; 81001; 82565; 82570; 83615; 84156; 84450; 84460; 84550; 85027; G0378; J7120

== ENCOUNTER 2018-11-08 15:12 | Inpatient (IN) | payer OTHER ==
[2018-11-08] MEDS ORDERED: BICITRA ORAL LIQD 30ML PO SCH (15:25)
[2018-11-08] MEDS ORDERED: FAMOTIDINE 20 MG/2 ML INJ IV SCH (15:25)
[2018-11-08] MEDS ORDERED: LACTATED RINGERS 2,000 ML ONE (15:30)
[2018-11-08 15:59] LABS: Bilirubin,Urine NEG (Negative); Blood,Urine NEG (Negative); Color,Urine Yellow (Yellow); Protein,Urine <15 mg/dL mg/dL (Negative); Urobilinogen,Urine < 2.0 mg/dL (<2.0)
[2018-11-08 16:00] LABS: Mucus,Urine 2+ /HPF
[2018-11-08] MEDS ORDERED: ceFAZolin/Water 2 GM/20 ML 2 GM/20 ML SYRINGE IV NR (16:00)
[2018-11-08] MEDS ORDERED: OXYTOCIN 20 UNIT/1000ML DRIP 20 UNITS/1,000 ML BAG IV SCH ×2 (16:00→20:00)
[2018-11-08] MEDS ORDERED: LACTATED RINGERS 1,000 ML IV SCH (16:00)
[2018-11-08] MEDS ORDERED: HYDROmorphone 1 MG/1 ML INJ IV PRN ×2 (16:16)
[2018-11-08] MEDS ORDERED: ONDANSETRON 4 MG/2 ML INJ IV PRN (16:16)
--- NOTE | 2018-11-08 16:22 | Anesthesia Consultation ---
Anesthesia Consult and Med Hx Date of service: 11/08/18 - Airway Anesthetic Teeth Evaluation: Caps ROM Head & Neck: Adequate Mental/Hyoid Distance: Adequate Mallampati Class: Class III Intubation Access Assessment: Probably Good - Pulmonary Exam CTA: Yes - Cardiac Exam Cardiac Exam: RRR - Pre-Operative Health Status ASA Pre-Surgery Classification: ASA3 Proposed Anesthetic Plan: Spinal - Pulmonary Hx Smoking: No Hx Asthma: No Hx Respiratory Symptoms: No SOB: No COPD: No Home Oxygen Therapy: No Hx Pneumonia: No Hx Sleep Apnea: No - Cardiovascular System Hx Hypertension: No Hx Coronary Artery Disease: No Hx Heart Attack/AMI: No Hx Cardia Arrhythmia: No Hx Pacemaker: No Hx Internal Defibrillator: No Hx Valvular Heart Disease: No Hx Heart Murmur: No Hx Peripheral Vascular Disease: No - Central Nervous System Hx Neuromuscular Disorder: No Hx Seizures: No CVA: No Hx Back Pain: No Hx Psychiatric Problems: No - Gastrointestinal Hx Ulcer: No Hx Gastroesophageal Reflux Disease: No - Endocrine Hx Renal Disease: No Hx End Stage Renal Disease: No Hx Cirrhosis: No Hx Liver Disease: No Hx Insulin Dependent Diabetes: No Hx Non-Insulin Dependent Diabetes: Yes (gestational DM) Hx Thyroid Disease: No Hx Hypothyroidism: No Hx Hyperthyroidism: No - Hematic Hx Anemia: No Hx Sickle Cell Disease: No - Other Systems Hx Alcohol Use: No Hx Substance Use: No Hx Cancer: No Hx Obesity: Yes (BMI 40)
--- NOTE | 2018-11-08 16:23 | Anesthesia Day of Surgery ---
Anesthesia Day of Surgery - Day of Surgery Patient Examined: Yes Patient H&P Reviewed: Yes Patient is NPO: Yes Beta Blockers: Yes Cardiac Clearance: No Pulmonary Clearance: No Anselmo's Test: N/A
[2018-11-08] MEDS ORDERED: METOCLOPRAMIDE 10 MG/2 ML INJ IV ONE (16:25)
[2018-11-08 16:32] LABS: Hematocrit 32.9 % (30.3-42.9); Hemoglobin 10.8 gm/dl (10.1-14.3); Mean Corpuscular HGB Conc 33 % (30-34); Mean Corpuscular Volume 85 fl (79-97); Platelet Count 164 K/mm3 (140-440); Red Blood Count 3.89 M/mm3 (3.65-5.03); Red Cell Distribution Width 15.5 % (13.2-15.2)
[2018-11-08 16:55] LABS: Alanine Aminotransferase 17 units/L (7-56); Uric Acid 4.6 mg/dL (3.5-7.6)
--- NOTE | 2018-11-08 17:24 | History and Physical Report ---
History of Present Illness Date of examination: 11/08/18 Date of admission: 11/08/18 15:12 Chief complaint: AMA; Preeclampsia; Oligohydramnios History of present illness: Pt is a 37yo BF EDC 11/20/18; EGA 38 2/7 weeks presents for delivery per [facility] due to Preeclampsia and Oligiohydramnios. She received late care at [facility] since 28 weeks when she transferred from [place] and co-managed by [facility] for AMA, Preeclampsia and GDM. She also had 2 previous C Sections and was scheduled for a Repeat C Section with BTL @ 39 0/7 weeks, but w ill be delivered today due to elevated BP's and Oligohydramnios. records are available and GBS is Negative. Past History Past Medical History: no pertinent history, hypertension, diabetes (GDM) Past Surgical History: section (x2) Social history: no significant social history, single - Obstetrical History Expected Date of Delivery: 11/20/18 Actual Gestation: 38 Week(s) 2 Day(s) : 3 Medications and Allergies Allergies Allergy/AdvReac Type Severity Reaction Status Date / Time No Known Allergies Allergy Verified 10/11/18 18:16 Home Medications Medication Instructions Recorded Confirmed Last Taken Type Ampicillin 500 mg PO Q6H #20 capsule 08/26/18 10/30/18 Unknown Rx cephALEXin [Keflex] 500 mg PO Q12HR #14 cap 10/11/18 10/30/18 Unknown Rx Vitamin 1 tab PO DAILY 10/30/18 10/30/18 10/30/18 08:00 History Labetalol [Labetalol 200mg TAB] 200 mg PO BID #60 tablet 10/31/18 Unknown Rx Active Meds: Active Medications Citric Acid/Sodium Citrate (Bicitra) 30 ml PO ONCE VALERIE Stop: 11/09/18 23:24 Last Admin: 11/08/18 17:07 Dose: 30 ml Documented by: Famotidine (Pepcid) 20 mg IV ONCE VALERIE Stop: 11/09/18 15:24 Last Admin: 11/08/18 17:07 Dose: 20 mg Documented by: Hydromorphone HCl (Dilaudid) 0.5 mg IV Q5M PRN PRN Reason: BREAK Stop: 11/08/18 23:59 Hydromorphone HCl (Dilaudid) 0.5 mg IV Q4H PRN PRN Reason: breakthrough pain > 7/10 Oxytocin/Sodium Chloride (Pitocin/Ns 20 Unit/1000ml Drip) 20 units in 1,000 mls @ 0 mls/hr IV TITR VALERIE Cefazolin Sodium (Ancef/Sterile Water 2 Gm/20 Ml) 2 gm in 20 mls @ 80 mls/hr IV PREOP NR; Protocol Stop: 11/09/18 15:59 Lactated Ringer's (Lactated Ringers) 1,000 mls @ 2,250 mls/hr IV PREOP VALERIE Stop: 11/09/18 16:27 Last Admin: 11/08/18 17:05 Dose: 2,250 mls/hr Documented by: Ondansetron HCl (Zofran) 4 mg IV Q8H PRN PRN Reason: Nausea And Vomiting Sodium Chloride (Sodium Chloride Flush Syringe 10 Ml) 10 ml IV PRN NR Stop: 11/09/18 16:59 Review of Systems All systems: negative - Vital Signs Vital signs: Vital Signs Pulse BP 91 H 146/98 11/08/18 15:32 11/08/18 15:32 Temp Pulse Resp BP Pulse Ox 98.4 F 78 129/70 11/08/18 15:40 11/08/18 17:02 11/08/18 17:02 - Physical Exam Breasts: Positive: deferred Cardiovascular: Regular rate Lungs: Positive: Clear to auscultation Abdomen: Positive: normal appearance Genitourinary (Female): Positive: normal external genitalia Vagina: Positive: normal moisture Uterus: Positive: enlarged Extremities: Positive: normal - Obstetrical FHR: category 1 Uterine Contraction Monitor Mode: External Results Result Diagrams: 11/08/18 16:00 11/08/18 16:00 Abnormal lab results 11/08/18 11/08/18 11/08/18 Range/Units 15:25 16:00 16:00 RDW 15.5 H (13.2-15.2) % Creatinine 0.6 L (0.7-1.2) mg/dL Lactate Dehydrogenase 260 H (91-180) units/L Urine WBC (Auto) 12.0 H (0.0-6.0) /HPF All other labs normal. Ultrasound: report reviewed (BPP 11/15; PATRICA 6.81) Assessment and Plan - Patient Problems (1) 38 weeks gestation of Onset Date: 11/08/18 Current Visit: Yes Status: Acute Plan to address problem: A: IUP @ 38 2/7 weeks Preeclampsia Oligohydramnios GDM - diet controlled Previous C Section x 2 Desires permanent sterilization P: Admit for a Repeat C Section with BTL (2) GDM (gestational diabetes mellitus) Onset Date: 11/08/18 Current Visit: Yes Status: Acute Qualifiers: Gestational diabetes mellitus control: diet-controlled Trimester: third trimester Qualified Code(s): O24.410 - Gestational diabetes mellitus in , diet controlled (3) Previous section complicating Onset Date: 11/08/18 Current Visit: Yes Status: Chronic (4) PIH ( induced hypertension), antepartum Onset Date: 10/30/18 Current Visit: No Status: Chronic
[2018-11-08] MEDS ORDERED: DEXMEDETOMIDINE 200 MCG/2 ML VIAL IV ONE (17:30)
[2018-11-08] MEDS ORDERED: WATER FOR IRRIG STERILE 1,500 ML BOTTLE IR ONE (18:10)
[2018-11-08] MEDS ORDERED: SODIUM CHLORIDE 0.9% IRR 1,500 ML BOTTLE IR ONE (18:10)
--- NOTE | 2018-11-08 19:02 | Operative Report ---
Operative Report Operative Report: Date of procedure: 11/08/2018 Pre-operative diagnosis: 1. Intrauterine at 38 2/7 weeks 2. Previ ous C Section x2 3. Preeclampsia 4. Oligohydramnios 5. Gestational Diabetes Mellitus 6. Advanced Maternal Age 7. Desires permanent sterilization Post-operative diagnosis: Same with lower uterine segment adhesions Procedure name(s): 1. Repeat low transverse section 2. Bilateral Tubal Ligation Surgeon: Anival Tate MD Chief Station Engineer: None Anesthesia: Spinal anesthesia by Kenya Knox CRNA EBL: 400 mL's Findings: A 3222g male infant Apgars 8 at 1 minute and 8 at 5 minutes. Clear amniotic fluid. Normal uterus with lower uterine segment adhesions. Normal tubes and ovaries bilaterally. Procedure: After the patient was prepped and draped in usual sterile fashion, and after satisfactory level of epidural anesthesia was obtained, the skin knife was used to make a transverse skin incision through the previous skin scars. The incision was excised down to layer of the fascia, which was nicked in the midline and extended laterally using the Bovie cautery. The rectus muscles were dissected off the rectus fascia both superiorly and inferiorly. The rectus bellies in the midline, and the peritoneum was entered under direct visualization. The peritoneal incision was extended superiorly and inferiorly. The lower uterine adhesions were taken down using both sharp and blunt dissection. A bladder flap was created and the bladder blade was then placed. The uterus was scored in a curvilinear linear fashion, entered in the midline revealing clear amniotic fluid. The 's head was delivered onto the surgical field, and the oropharynx and nasopharynx were bulb suctioned. The rest of the infant's body was delivered, cord was doubly clamped and cut and the was handed to the waiting respiratory team. Cord blood was then obtained. The placenta was manually removed from the uterus, and the uterus removed from its normal anatomical position. After gentle uterine lavage, the incision was inspected and found to be without extensions. It was then closed in 2 layers using 0 Vicryl suture in a running interlocking fashion, the second layer imbricating the first. After good hemostasis was achieved, copious amounts or irrigation was performed, and the gutters were suctioned free of blood and blood clots. Attention was then turned to the tubal ligation. First the left fallopian tube was grasped using a [place], and the Filsche clip was applied to the proximal portion of the left tube. Next the right fallopian tube was grasped using the John, and the Filsche clip was applied to the proximal portion of the tube. The Tisseel sealant was sprayed across the uterine incision, and excellent hemostasis was assured. The uterus was then returned to its normal anatomical position, and after excellent hemostasis assured, the peritoneum was re-approximated using 3-0 Vicryl suture in a running interlocking fashion, and then the rectus muscles were re-approximated using 3-0 Vicryl suture in a [id number] configuration. The fascia was then re-approximated using 0 Vicryl suture in running interlocking fashion. The subcutaneous layer was made hemostatic using Bovie cautery, and the skin edges re-approximated using 4-0 Vicryl suture in a sub-cuticular fashion. Patient tolerated the procedure well was transported to recovery in stable condition.
[2018-11-08] MEDS ORDERED: KETOROLAC 30 MG/1 ML INJ ONE (19:07)
[2018-11-08] MEDS ORDERED: ONDANSETRON 4 MG/2 ML INJ ONE (19:07)
[2018-11-08] MEDS ORDERED: DEXTROSE 50% IN WATER (25GM) 50 ML SYRINGE IV PRN (19:10)
[2018-11-08] MEDS ORDERED: MAGNESIUM HYDROXIDE (MOM) ORAL LIQD UDC PO PRN (19:10)
[2018-11-08] MEDS ORDERED: PROMETHAZINE 25 MG RECT SUPP PR PRN (19:10)
[2018-11-08] MEDS ORDERED: NALOXONE 0.4 MG/1 ML INJ IV PRN (19:10)
[2018-11-08] MEDS ORDERED: WITCH HAZEL/ GLYCERIN PAD TP PRN (19:10)
[2018-11-08] MEDS ORDERED: LANOLIN/ZINC/DIMETHICONE (LANSINOH) 7 GM TP PRN (19:10)
[2018-11-08] MEDS ORDERED: ACETAMINOPHEN 325 MG TAB PO PRN (19:10)
[2018-11-08] MEDS ORDERED: SIMETHICONE 80 MG CHEW TAB PO PRN (19:10)
[2018-11-08] MEDS ORDERED: KETOROLAC 30 MG/1 ML INJ IV PRN (19:10)
[2018-11-08] MEDS ORDERED: SENNOSIDES 8.6 MG TAB PO PRN (19:10)
--- NOTE | 2018-11-08 19:14 | Post Anesthesia Evaluation ---
- Post Anesthesia Evaluation Patient Participated: Yes Airway Patent: Yes Stable Respiratory Function: Yes Nausea/Vomiting: No Temp > 96.8F: Yes Pain Manageable: Yes Adequeate Hydration: Yes Anesthesia Complications: No Block Receding Appropriately: Yes Patient on Ventilator: No
[2018-11-08] MEDS ORDERED: D5W/LACTATED RINGERS 1,000 ML IV SCH (20:00)
[2018-11-09] MEDS ORDERED: ceFAZolin/NS 1 GM/50 ML 1 GM/50 ML BAG IV SCH (01:00)
[2018-11-09] MEDS: INSULIN REGULAR, HUMAN 100 UNITS/1 ML SUB-Q SCH ×2 (02:16→22:00)
[2018-11-09] MEDS ORDERED: MEASLES, MUMPS & RUBELLA 12,500 UNIT/0.5 ML VACCINE SUB-Q ONE (06:00)
[2018-11-09] MEDS ORDERED: TETANUS,DIPH,PERTUSS(ACELL) VACCINE 0.5 ML SYRINGE IM ONE (06:00)
[2018-11-09 07:47] LABS: Hemoglobin 9.8 gm/dl (10.1-14.3)
[2018-11-09] MEDS: oxyCODONE /ACETAMINOPHEN 5-325MG TAB PO PRN ×3 (07:55→22:15)
--- NOTE | 2018-11-09 10:43 | Progress Note ---
Assessment and Plan - Patient Problems (1) 38 weeks gestation of Onset Date: 11/08/18 Current Visit: Yes Status: Resolved (2) GDM (gestational diabetes mellitus) Onset Date: 11/08/18 Current Visit: Yes Status: Resolved Qualifiers: Gestational diabetes mellitus control: diet-controlled Trimester: third trimester Qualified Code(s): O24.410 - Gestational diabetes mellitus in , diet controlled (3) Previous section complicating Onset Date: 11/08/18 Current Visit: Yes Status: Resolved (4) PIH ( induced hypertension), antepartum Onset Date: 10/30/18 Current Visit: No Status: Resolved (5) Status post Onset Date: 11/09/18 Current Visit: Yes Status: Resolved Plan to address problem: A: S/P Repeat C Section with BTL - POD #1 Doing well PIH - stable GDM - stable P: Continue RPOC Anticipate discharge in 24-48hrs Subjective - Subjective Date of service: 11/09/18 Principal diagnosis: s/p Repeat C Section with BTL - POD #1 Interval history: Pt is feeling well without complaints. Bleeding improved. Patient reports: appetite normal, voiding normally, pain well controlled, nauseated, no dizzy ambulation, no flatus, no ambulating normally : doing well, bottle feeding Objective - Vital Signs Latest vital signs: Vital Signs Temp Pulse Resp BP BP Pulse Ox 11/09/18 09:20 98.2 F 90 18 138/79 92 11/09/18 05:40 98.0 F 85 18 141/90 98 11/09/18 01:27 98.3 F 85 18 130/88 99 11/09/18 00:15 97.9 F 11/08/18 22:30 97.5 F L 11/08/18 22:00 97.4 F L 11/08/18 21:30 97.4 F L 11/08/18 21:15 96.9 F L 11/08/18 21:00 96.9 F L 78 17 129/78 98 11/08/18 20:07 97.6 F 12 L 12 131/79 98 11/08/18 19:50 97.5 F L 82 13 137/83 98 11/08/18 19:35 75 12 122/74 95 11/08/18 19:20 75 16 120/72 11/08/18 19:05 78 23 115/63 99 11/08/18 17:02 78 129/70 11/08/18 16:18 85 127/78 11/08/18 16:02 78 119/78 11/08/18 15:47 80 125/76 11/08/18 15:42 75 132/78 11/08/18 15:40 98.4 F 11/08/18 15:32 91 H 146/98 Intake and Output 11/08/18 11/09/18 11/09/18 22:59 06:59 14:59 Intake Total 1700 560 300 Output Total 130 350 400 Balance 1570 210 -100 Intake: IV 1700 Intake, Free Water 560 300 Output: Urine 130 350 400 Void 350 400 Other: Total, Output Amount 350 400 Weight 119.748 kg Estimated Blood Loss 400 - Exam Breasts: Present: deferred Abdomen: Present: normal appearance, soft Uterus: Present: normal, firm, fundal height below umbilicus Extremities: Present: normal Incision: Present: normal, dry, intact, dressed - Labs Labs: Abnormal lab results 11/08/18 11/08/18 11/08/18 Range/Units 15:25 16:00 16:00 Hgb (10.1-14.3) gm/dl Hct (30.3-42.9) % RDW 15.5 H (13.2-15.2) % Creatinine 0.6 L (0.7-1.2) mg/dL POC Glucose (70-105) Lactate Dehydrogenase 260 H (91-180) units/L Urine WBC (Auto) 12.0 H (0.0-6.0) /HPF 11/08/18 11/09/18 11/09/18 Range/Units 22:41 00:18 06:45 Hgb 9.8 L (10.1-14.3) gm/dl Hct 30.0 L (30.3-42.9) % RDW (13.2-15.2) % Creatinine (0.7-1.2) mg/dL POC Glucose 61 L 116 H (70-105) Lactate Dehydrogenase (91-180) units/L Urine WBC (Auto) (0.0-6.0) /HPF Laboratory Tests 11/08/18 11/08/18 11/08/18 15:25 16:00 16:00 WBC 6.8 RBC 3.89 Hgb 10.8 Hct 32.9 MCV 85 MCH 28 MCHC 33 RDW 15.5 H Plt Count 164 Creatinine 0.6 L Estimated GFR > 60 POC Glucose Uric Acid 4.6 AST 22 ALT 17 Lactate Dehydrogenase 260 H Urine Color Yellow Urine Turbidity Slightly-cloudy Urine pH 6.0 Ur Specific Lee 1.028 Urine Protein <15 mg/dl Urine Glucose (UA) Neg Urine Ketones 20 Urine Blood Neg Urine Nitrite Neg Urine Bilirubin Neg Urine Urobilinogen < 2.0 Ur Leukocyte Esterase Lg Urine WBC (Auto) 12.0 H Urine RBC (Auto) 11.0 U Epithel Cells (Auto) 1.0 Urine Mucus 2+ Blood Type Antibody Screen 11/08/18 11/08/18 11/09/18 16:00 22:41 00:18 WBC RBC Hgb Hct MCV MCH MCHC RDW Plt Count Creatinine Estimated GFR POC Glucose 61 L 116 H Uric Acid AST ALT Lactate Dehydrogenase Urine Color Urine Turbidity Urine pH Ur Specific Lee Urine Protein Urine Glucose (UA) Urine Ketones Urine Blood Urine Nitrite Urine Bilirubin Urine Urobilinogen Ur Leukocyte Esterase Urine WBC (Auto) Urine RBC (Auto) U Epithel Cells (Auto) Urine Mucus Blood Type A POSITIVE Antibody Screen Negative 11/09/18 06:45 WBC RBC Hgb 9.8 L Hct 30.0 L MCV MCH MCHC RDW Plt Count Creatinine Estimated GFR POC Glucose Uric Acid AST ALT Lactate Dehydrogenase Urine Color Urine Turbidity Urine pH Ur Specific Lee Urine Protein Urine Glucose (UA) Urine Ketones Urine Blood Urine Nitrite Urine Bilirubin Urine Urobilinogen Ur Leukocyte Esterase Urine WBC (Auto) Urine RBC (Auto) U Epithel Cells (Auto) Urine Mucus Blood Type Antibody Screen
[2018-11-09] MEDS ORDERED: FLU VACC QUAD 2019-20 (3 YR UP)/PF 60 MCG/0.5 ML SYRINGE IM ONE (12:00)
[2018-11-09] MEDS: IBUPROFEN 800 MG TAB PO PRN (17:20)
[2018-11-10] MEDS: IBUPROFEN 800 MG TAB PO PRN ×4 (00:09→22:02)
[2018-11-10] MEDS: oxyCODONE /ACETAMINOPHEN 5-325MG TAB PO PRN ×3 (06:40→18:53)
--- NOTE | 2018-11-10 09:11 | Progress Note ---
Assessment and Plan - Patient Problems (1) 38 weeks gestation of Onset Date: 11/08/18 Current Visit: Yes Status: Resolved (2) GDM (gestational diabetes mellitus) Onset Date: 11/08/18 Current Visit: Yes Status: Resolved Qualifiers: Gestational diabetes mellitus control: diet-controlled Trimester: third trimester Qualified Code(s): O24.410 - Gestational diabetes mellitus in , diet controlled (3) Previous section complicating Onset Date: 11/08/18 Current Visit: Yes Status: Resolved (4) PIH ( induced hypertension), antepartum Onset Date: 10/30/18 Current Visit: No Status: Resolved (5) Status post Onset Date: 11/09/18 Current Visit: Yes Status: Resolved Plan to address problem: A: S/P Repeat C Section with BTL - POD #2 Doing well PIH - stable GDM - stable P: May go home tomorrow. Follow up in the office in 1 week for BP check. Subjective - Subjective Date of service: 11/10/18 Principal diagnosis: s/p Repeat C Section with BTL - POD #2 Interval history: Pt is feeling well, but complains of right sided pains. She is tolerating a reg diet without nausea or vomiting, ambulating and voiding without difficulty. Patient reports: appetite normal, voiding normally, pain well controlled, flatus, ambulating normally, no dizzy ambulation, no nauseated : doing well, nursing well, bottle feeding Objective - Vital Signs Latest vital signs: Vital Signs Temp Pulse Resp BP Pulse Ox 11/10/18 08:27 97.7 F 80 20 131/77 97 11/10/18 00:50 97.8 F 89 20 129/80 95 11/09/18 16:57 98.3 F 90 16 129/82 98 11/09/18 12:51 97.5 F L 86 18 134/78 100 11/09/18 09:20 98.2 F 90 18 138/79 92 Intake and Output 11/09/18 11/10/18 11/10/18 22:59 06:59 14:59 Intake Total 360 Balance 360 Intake: Oral 360 Other: Total, Intake Amount 360 # Voids Void 1 1 - Exam Breasts: Present: deferred Abdomen: Present: normal appearance, soft Uterus: Present: normal, firm, fundal height below umbilicus Extremities: Present: normal Incision: Present: normal, dry, intact
[2018-11-10] MEDS: PRENATAL VIT27-FE FUMARATE-FOLIC ACID VIT TAB PO SCH (11:06)
[2018-11-10] MEDS: FERROUS SULFATE 325 MG TAB PO SCH (11:06)
[2018-11-11] MEDS: IBUPROFEN 800 MG TAB PO PRN (06:38)
[2018-11-11] MEDS: FERROUS SULFATE 325 MG TAB PO SCH (10:03)
[2018-11-11] MEDS: HYDROcodone/ACETAMINOPHEN 5-325 MG TAB PO PRN ×3 (10:03→23:23)
[2018-11-11] MEDS: PRENATAL VIT27-FE FUMARATE-FOLIC ACID VIT TAB PO SCH (10:03)
--- NOTE | 2018-11-11 12:01 | Vascular Lab Report ---
DUPLEX DOPPLER LOWER EXTREMITY VEINS, RIGHT INDICATION / CLINICAL INFORMATION: Right calf pain. TECHNIQUE: Duplex doppler imaging was performed through the veins of the right lower extremity using venous comp ression and other maneuvers. COMPARISON: None available. FINDINGS: COMMON FEMORAL VEIN: Negative. FEMORAL VEIN: Negative. Due to patient's body habitus, the distal portion of the superficial femoral vein was difficult to evaluate. POPLITEAL VEIN: Negative. CALF VEINS: Negative. ADDITIONAL FINDINGS: None. IMPRESSION: 1. No sonographic evidence for DVT in the right lower extremity. Please note that the technologist [place] d some difficulty incompletely evaluating the distal right superficial femoral vein due to the patien t's body habitus. There was no secondary signs of DVT. Signer Name: Twila Nelson MD Signed: 11/11/2018 11:56 AM Workstation Name: [id number]
--- NOTE | 2018-11-11 12:32 | Discharge Summary ---
Providers - Providers Date of Admission: 11/08/18 15:12 Date of discharge: 11/11/18 Attending physician: DAI POE Primary care physician: DAI POE Hospitalization Reason for admission: section (x2), IUP at term, other (Preeclampsia; Oligohydramnios; GDM; Desires permanent sterilization) Delivery: Procedure: section, bilateral tubal ligation, repeat low transverse Episiotomy: none Laceration: none Incision: normal Other procedures: tubal ligation complications: none Discharge diagnosis: IUP at term delivered [place] baby: male Hospital course: Pt is a 37yo BF EDC 11/20/18; EGA 38 2/7 weeks who presented for delivery per [facility] due to Preeclampsia and Oligiohydramnios. She received late care at [facility] since 28 weeks when she transferred from [place] [facility]managed [facility] for AMA, Preeclampsia and GDM. She also had 2 previous C Sections and was scheduled for a Repeat C Section with BTL @ 39 0/7 weeks, but underwent an uncomplicated Repeat C Section with Bilateral Tubal Ligation due to elevated BP's and Oligohydramnios. Post-operative course was unremarkable, and by POD #2 she was tolerating a reg diet without nausea or vomiting, ambulating and voiding without difficulty. She complained of some mild right calf tenderness, but Doppler studies showed evidence of DVT or SVT. She was therefore discharged to home on POD #3 in stable condition, and will follow up in the office in 1 week for BP check. Condition at discharge: Good Disposition: DC-01 TO HOME OR SELFCARE - Discharge Diagnoses (1) 38 weeks gestation of Status: Resolved (2) GDM (gestational diabetes mellitus) Status: Resolved Qualifiers: Gestational diabetes mellitus control: diet-controlled Trimester: third trimester Qualified Code(s): O24.410 - Gestational diabetes mellitus in , diet controlled (3) Previous section complicating Status: Resolved (4) PIH ( induced hypertension), antepartum Status: Resolved (5) Status post Status: Resolved Plan - Discharge Medications Prescriptions: Ferrous Sulfate [Feosol 325 MG tab] 325 mg PO BID #60 tablet Ibuprofen [Motrin 800 MG tab] 800 mg PO Q6H PRN #30 tablet PRN Reason: Pain, Mild (1-3) HYDROcodone/APAP 5-325 [Lovilia 5-325 mg TAB] 1 each PO Q6HR PRN #30 tablet PRN Reason: Pain, Moderate (4-6) Vit-Fe Fumar-FA [ Vitamin] 1 each PO QDAY #30 tablet - Provider Discharge Summary Activity: routine, no sex for 6 weeks, no heavy lifting 4 weeks, no strenuous exercise Diet: routine Instructions: routine Additional instructions: [] Smoking cessation referral if applicable(refer to patient education folder for contact #) [] Refer to [facility] Booklet Call your doctor immediately for: * Fever > 100.5 * Heavy vaginal bleeding ( >1 pad per hour) * Severe persistent headache * Shortness of breath * Reddened, hot, painful area to leg or breast * Drainage or odor from incision. * Keep incision clean and dry at all times and follow doctor's instructions regarding bathing/showering Follow up in office in 1 week for BP check - Follow up plan Follow up: DAI POE MD [Primary Care Provider] - 7 Days
[2018-11-12] MEDS: oxyCODONE /ACETAMINOPHEN 5-325MG TAB PO PRN (05:42)
[2018-11-12] MEDS: PRENATAL VIT27-FE FUMARATE-FOLIC ACID VIT TAB PO SCH ×2 (10:00→10:03)
[2018-11-12] MEDS: FERROUS SULFATE 325 MG TAB PO SCH ×2 (10:00→10:03)
[2018-11-12] MEDS: INSULIN REGULAR, HUMAN 100 UNITS/1 ML SUB-Q SCH ×2 (12:00→16:21)
[2018-11-12 12:45] VITALS: BP 147/95
== END 2018-11-12 16:51 | disposition home or self-care (01) | DRG 765 ==
LOC: APU 15:12 → OB 20:31
PROVIDERS: ADMIT Obstetrics & Gynecology; ATTEND Obstetrics & Gynecology
PROC: 10D00Z1 Extraction of Products of Conception, Low, Open Approach (ICD-10-PCS; principal; 2018-11-08)
PROC: 0UL70CZ Occlusion of Bilateral Fallopian Tubes with Extraluminal Device, Open Approach (ICD-10-PCS; 2018-11-08)
PROC: 3E0234Z Introduction of Serum, Toxoid and Vaccine into Muscle, Percutaneous Approach (ICD-10-PCS; 2018-11-09)
DX: O11.4 Pre-existing hypertension with pre-eclampsia, complicating childbirth (principal); O41.03X0 Oligohydramnios, third trimester, not applicable or unspecified; O34.211 Maternal care for low transverse scar from previous cesarean delivery; O99.214 Obesity complicating childbirth; O24.420 Gestational diabetes mellitus in childbirth, diet controlled; Z3A.38 38 weeks gestation of pregnancy; Z37.0 Single live birth; Z79.899 Other long term (current) drug therapy
CPT/HCPCS: 36415; 81001; 82565; 82962; 83615; 84450; 84460; 84550; 85014; 85018; 85027; 86592; 86706; 86762; 86850; 86900; 86901; 87086; G0378; C9250; J0690; J1885; J2405; J2590; J2765; J3490; J7120; J7121

== ENCOUNTER 2020-11-03 03:43 | Emergency (ER) | payer OTHER ==
[2020-11-03] MEDS ORDERED: IBUPROFEN 800 MG TAB PO ONE (04:10)
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
[2020-11-03 04:47] VITALS: BP 119/82
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
--- NOTE | 2020-11-09 14:06 | Electrocardiograph Report ---
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
== END 2020-11-03 06:08 | disposition home or self-care (01) ==
LOC: ED 03:43
DX: R07.89 Other chest pain (principal); I10 Essential (primary) hypertension; V43.52XA Car driver injured in collision with other type car in traffic accident, initial encounter; Y92.410 Unspecified street and highway as the place of occurrence of the external cause; Y92.89 Other specified places as the place of occurrence of the external cause; Y99.8 Other external cause status
CPT/HCPCS: 71046; 93005; 99283